=== PATIENT | male | born 1965 | race Caucasian/White ===

== ENCOUNTER 2017-12-23 11:50 | Emergency (ER) | payer BC ==
[2017-12-23] MEDS ORDERED: Lidocaine 1% w/Epinephrine 1:100K 30 ML VIAL ONE (12:05)
[2017-12-23] MEDS ORDERED: cefTRIAXone\\ROCEPHIN 1 GM VIAL ONE (12:07)
[2017-12-23] MEDS ORDERED: Lidocaine 1% 20 ML MDV ONE (12:09)
== END 2017-12-23 12:44 | disposition home or self-care (01) ==
LOC: BURERS 11:50
DX: L03.115 Cellulitis of right lower limb (principal)
CPT/HCPCS: 96372; J0696; J2001